=== PATIENT | female | born 1985 | race African-American/Black ===

== ENCOUNTER 2017-11-15 18:57 | Emergency (ER) | payer OTHER ==
[~2017-11-15] VITALS: Ht 180.3 cm; Wt 97.5 kg
--- OUTSIDE RECORDS SUMMARY | 2017-11-15 18:59 | XMS REPORT | Clinical Summary ---
Author Author [facility] Address Unknown Phone Unavailable Care Team Providers Care Flatwork Ironer Name Role Phone PCP Unavailable Allergies No Known Allergies Current Medications Prescription Sig. Disp. Refills Start End Date Status Date multivitamin per tablet Take 1 tablet by mouth Active daily. cholecalciferol (VITAMIN Take 1,000 Units by mouth Active D3) 1,000 unit tablet daily. calcium carbonate Take 600 mg by mouth 2 Active (OS-JAYNA) 600 mg (1,500 (two) times daily with mg) Tab breakfast and dinner. ibuprofen (ADVIL,MOTRIN) Take 1 tablet (600 mg 20 tablet 0 03/27/20 Active 600 MG tablet total) by mouth every 6 16 (six) hours as needed for Pain for up to 20 doses. acetaminophen-codeine Take 1-2 tablets by mouth 20 tablet 0 03/27/20 Active (TYLENOL #3) 300-30 mg every 6 (six) hours as 16 per tablet needed for Pain (WARNING CAUSES SEDATION) for up to 20 doses. metoprolol (TOPROL-XL) 25 Take 25 mg by mouth Active MG 24 hr tablet daily. cyclobenzaprine Take 1 tablet (10 mg 20 tablet 0 11/11/19 11/21/19 (FLEXERIL) 10 MG tablet total) by mouth 2 (two) 17 17 times daily as needed for Muscle spasms for up to 10 days. Active Problems Not on file Encounters Date Type Specialty Care Team Description 07/25/2017 Emergency Emergency Medicine Debbie Conroy MD Chest pain, unspecified type (Primary Dx) 07/25/2017 Orders Only General Internal Medicine after 11/14/2016 Social History Tobacco Use Types Packs/Day Years Used Date Never Smoker Alcohol Use Drinks/Week oz/Week Comments Yes occassionally Sex Assigned at Date Recorded Not on file Last Filed Vital Signs Vital Sign Reading Time Taken Blood Pressure 102/64 07/25/2017 4:34 PM BLASTER HELPER Pulse 94 07/25/2017 4:34 PM BLASTER HELPER Temperature 36.7 C (98 F) 07/25/2017 4:34 PM BLASTER HELPER Respiratory Rate 20 07/25/2017 4:34 PM BLASTER HELPER Oxygen Saturation 99% 07/25/2017 4:34 PM BLASTER HELPER Inhaled Oxygen - - Concentration Weight 101.6 kg (224 lb) 07/25/2017 11:05 AM BLASTER HELPER Height 180.3 cm (5' 11") 07/25/2017 11:05 AM BLASTER HELPER Body Mass Index 31.24 07/25/2017 11:05 AM BLASTER HELPER Plan of Treatment Not on file Results * RHYTHM STRIP - SCAN (07/26/2017 10:10 AM) * ED ECG Interpretation (07/25/2017 3:56 PM) Narrative Debbie Conroy MD 07/25/20173:56 PM ECG/EKG Interpretation Date/Time: 07/25/2017 11:11 AM Performed by: DEBBIE CONROY Authorized by: DEBBIE CONROY The ECG was interpreted by ED physician. The ECG is interpreted as sinus rhythm. Rate is normal rate. Clinical Impression: non-specific ECG * CT chest for pulmonary embolus (07/25/2017 2:59 PM) Specimen Performing Laboratory [employer] Narrative FINAL REPORT CT scan of the chest with pulmonary embolism protocol. Clinical History: Chest pain, acute, , PE suspected cp/sob. Comparison Study: CT scan of the chest dated May 11, 2016. Technique: Pre-intravenous contrast localization images were acquired followed by contiguous helical slices through the thorax post administration of intravenous contrast using a timed bolus fashion. This exam was performed according to our department dose optimization program which includes automated exposure control, adjustment of the mA and/or kV according to the patient's size and/or use of iterative reconstruction technique. Findings: There is no evidence of pulmonary embolism. The mediastinum demonstrates no suspicious masses or adenopathy. Edematous changes are seen, similar to previous. The main pulmonary artery is dilated measuring 3.4 cm. The pleural spaces are clear. Elevation of the left hemidiaphragm is noted, as on previous. Postsurgical changes are seen in the stomach. The tracheobronchial tree is clear with no endobronchial lesions. The pulmonary parenchyma demonstrates a stable 7 mm nodule in the left lung apex on image six. There is minimal subpleural nodularity in the right middle lobe. A 2 mm nodule is seen in the right upper lobe on image 23, stable. Other stable punctate nodules are noted. Bone windows demonstrate no evidence of fracture or malalignment. Impression: 1. No evidence of pulmonary embolism. 2. Significant elevation of the left hemidiaphragm, as on previous. There is adjacent atelectasis or consolidation. This could be related to a diaphragmatic hernia or diaphragmatic paralysis. 3. Punctate pulmonary nodules, stable. 4. Enlargement of the main pulmonary artery suggestive of pulmonary arterial hypertension. If the patient is not known to have pulmonary hypertension, referral to pulmonology is recommended. 5. The previously seen right-sided breast mass is not included in the fvdfo-yf-tknw on the present study. If this has not been worked up, workup is recommended. 6. Other findings as described above. Signed: Elgin Monreal MD Report Verified Date/Time:07/25/2017 15:33:20 Reading Location: [address] Ortho Consult Reading Room Procedure Note Interface, External Ris In - 07/25/2017 3:35 PM BLASTER HELPER FINAL REPORT CT scan of the chest with pulmonary embolism protocol. Clinical History: Chest pain, acute, , PE suspected cp/sob. Comparison Study: CT scan of the chest dated May 11, 2016. Technique: Pre-intravenous contrast localization images were acquired followed by contiguous helical slices through the thorax post administration of intravenous contrast using a timed bolus fashion. This exam was performed according to our department dose optimization program which includes automated exposure control, adjustment of the mA and/or kV according to the patient's size and/or use of iterative reconstruction technique. Findings: There is no evidence of pulmonary embolism. The mediastinum demonstrates no suspicious masses or adenopathy. Edematous changes are seen, similar to previous. The main pulmonary artery is dilated measuring 3.4 cm. The pleural spaces are clear. Elevation of the left hemidiaphragm is noted, as on previous. Postsurgical changes are seen in the stomach. The tracheobronchial tree is clear with no endobronchial lesions. The pulmonary parenchyma demonstrates a stable 7 mm nodule in the left lung apex on image six. There is minimal subpleural nodularity in the right middle lobe. A 2 mm nodule is seen in the right upper lobe on image 23, stable. Other stable punctate nodules are noted. Bone windows demonstrate no evidence of fracture or malalignment. Impression: 1. No evidence of pulmonary embolism. 2. Significant elevation of the left hemidiaphragm, as on previous. There is adjacent atelectasis or consolidation. This could be related to a diaphragmatic hernia or diaphragmatic paralysis. 3. Punctate pulmonary nodules, stable. 4. Enlargement of the main pulmonary artery suggestive of pulmonary arterial hypertension. If the patient is not known to have pulmonary hypertension, referral to pulmonology is recommended. 5. The previously seen right-sided breast mass is not included in the lzyqx-sb-dxhc on the present study. If this has not been worked up, workup is recommended. 6. Other findings as described above. Signed: Elgin Monreal MD Report Verified Date/Time: 07/25/2017 15:33:20 Reading Location: [facility] [id number] Ortho Consult Reading Room * POCT , urine (07/25/2017 1:56 PM) Component Value Ref Range Test Urine, POC Negative Control line present?, Yes POC Background clear?, POC Yes UPT Cassette Lot #, POC [id number] UPT Cassette Expiration 2019-01-10 Date, POC * XR chest 1 view portable / bedside (07/25/2017 11:23 AM) Specimen Performing Laboratory [facility] Narrative FINAL REPORT Chest one view INDICATION: Chest pain COMPARISON: 03/27/2016 IMPRESSION: The left diaphragm remains elevated. There is no focal consolidation, vascular congestion, pleural effusion, or pneumothorax. The cardiomediastinal silhouette is unremarkable. The bones appear intact. Signed: Wil Corcoran MD Report Verified Date/Time:07/25/2017 11:47:17 Reading Location: [facility] Radiology Reading Room Procedure Note Interface, External Ris In - 07/25/2017 11:49 AM BLASTER HELPER FINAL REPORT Chest one view INDICATION: Chest pain COMPARISON: 03/27/2016 IMPRESSION: The left diaphragm remains elevated. There is no focal consolidation, vascular congestion, pleural effusion, or pneumothorax. The cardiomediastinal silhouette is unremarkable. The bones appear intact. Signed: Wil Corcoran MD Report Verified Date/Time: 07/25/2017 11:47:17 Reading Location: [facility] Radiology Reading Room * CBC with platelet count + automated diff (07/25/2017 11:20 AM) Component Value Ref Range WBC 3.3 (L) 3.5 - 10.5 K/ L RBC 3.63 (L) 3.93 - 5.22 M/ L Hemoglobin 8.2 (L) 11.2 - 15.7 GM/DL Hematocrit 28.1 (L) 34.1 - 44.9 % MCV 77.4 (L) 79.4 - 94.8 fL MCH 22.6 (L) 25.6 - 32.2 pg MCHC 29.2 (L) 32.2 - 35.5 GM/DL RDW 18.8 (H) 11.7 - 14.4 % Platelets 197 150 - 450 K/CU MM MPV 10.4 9.4 - 12.3 fL nRBC 0 0 - 0 /100 WBC % Neutros 53 % % Lymphs 38 % % Monos 7 % % Eos 1 % % Baso 1 % # Neutros 1.73 1.56 - 6.13 K/ L # Lymphs 1.25 1.18 - 3.74 K/ L # Monos 0.23 (L) 0.24 - 0.36 K/ L # Eos 0.02 (L) 0.04 - 0.36 K/ L # Baso 0.04 0.01 - 0.08 K/ L Immature 0 0 - 1 % Granulocytes-Relative Specimen Performing Laboratory [facility] - Arm, [address] [address] * Troponin I (07/25/2017 11:20 AM) Component Value Ref Range Troponin I <0.01 0.00 - 0.03 ng/mL Specimen Performing Laboratory [facility] - [facility], [place] [address] Narrative Troponin I (TnI) levels must be interpreted in the context of the presenting symptoms and the clinical findings. Elevated TnI levels indicate myocardial damage, but are not specific for ischemic heart disease. Elevated TnI levels are seen in patients with other cardiac conditions (including myocarditis and congestive heart failure), and slight TnI elevations occur in patients with other conditions, including sepsis, renal failure, acidosis, acute neurological disease, and persistent tachyarrhythmia. * D-dimer (07/25/2017 11:20 AM) Component Value Ref Range D-Dimer, Quant 0.54 (H) <0.50 MG/L FEU Specimen Performing Laboratory [facility], [place] [address] Narrative Intended Use: The D-Dimer Assay can be used to aid in the diagnosis of Deep Vein Thrombosis (DVT) and Pulmonary Embolism Disease (PED). In patients with low pre-test probability, various studies concerning STA Liatest D-dimer test have reported that with a cutoff value of 0.50 MG/L FEU, the Negative Predictive Value (NPV) regarding the exclusion of thrombosis is within 95-100% range. * CBC with platelet count + automated diff (07/25/2017 11:20 AM) Specimen Performing Laboratory Blood Narrative The following orders were created for panel order CBC with platelet count + automated diff. Procedure Abnormality Status --------- - ------ CBC with platelet count ...[[id number]]AbnormalFinal result Please view results for these tests on the individual orders. * B-type Natriuretic Factor (BNP) (07/25/2017 11:20 AM) Component Value Ref Range BNP 34 0 - 100 pg/mL Specimen Performing Laboratory [facility], [place] [address] * Creatine Kinase (CK), Total and MB (07/25/2017 11:20 AM) Component Value Ref Range Total CK 81 29 - 200 U/L CK-MB 0.3 0.0 - 6.6 ng/mL MB Relative Index 0.4 % Specimen Performing Laboratory [facility], [address] [place] [address] Narrative CK-MB Reference Range: <6.7Normal 6.7-10.0Borderline >10.0 Abnormal * Basic Metabolic Panel (07/25/2017 11:20 AM) Component Value Ref Range Sodium 139 136 - 145 meq/L Potassium 4.3 3.5 - 5.1 meq/L Chloride 110 (H) 98 - 107 meq/L CO2 24 22 - 29 meq/L BUN 15 7 - 21 mg/dL Creatinine 0.85 0.57 - 1.25 mg/dL Glucose 94 70 - 105 mg/dL Calcium 8.7 8.4 - 10.2 mg/dL EGFR 93Comment: ESTIMATED GFR IS NOT ACCURATE mL/min/1.73 sq m CREATININE CLEARANCE IN PREDICTING GLOMERULAR FILTRATION RATE. ESTIMATED GFR IS NOT APPLICABLE FOR DIALYSIS PATIENTS. Specimen Performing Laboratory [facility], Right [address] [address] * ECG 12 lead (07/25/2017 10:56 AM) Specimen Performing Laboratory [facility] Narrative Ventricular Rate 72 BPM Atrial Rate 72 BPM P-R Interval 130 ms QRS Duration 70 ms Q-T Interval 350 ms QTC Calculation(Bazett) 383 ms P [place] 41 degrees R [place] -17 degrees T [place] -8 degrees Normal sinus rhythm Nonspecific T wave abnormality Abnormal ECG When compared with ECG of 10-NOV-2016 01:25, Questionable change in QRS axis Nonspecific T wave abnormality now evident in Inferior leads Confirmed by Syeda BEAN, JOE ([id number]) on 07/26/2017 9:00:37 AM Procedure Note Interface, External Ris In - 07/26/2017 9:00 AM BLASTER HELPER Ventricular Rate 72 BPM Atrial Rate 72 BPM P-R Interval 130 ms QRS Duration 70 ms Q-T Interval 350 ms QTC Calculation(Bazett) 383 ms P [place] 41 degrees R [place]den -17 degrees T [place] -8 degrees Normal sinus rhythm Nonspecific T wave abnormality Abnormal ECG When compared with ECG of 10-NOV-2016 01:25, Questionable change in QRS axis Nonspecific T wave abnormality now evident in Inferior leads Confirmed by Syeda BEAN BASANT ([id number]) on 07/26/2017 9:00:37 AM after 11/14/2016
--- OUTSIDE RECORDS SUMMARY | 2017-11-15 19:00 | XMS REPORT ---
Author Author [facility] Address Unknown Phone Unavailable Care Team Providers Care Editor In Chief Name Role Phone DEBBIE CONROY Unavailable Unavailable Problems This patient has no known problems. Allergies, Adverse Reactions, Alerts This patient has no known allergies or adverse reactions. Medications This patient has no known medications. Results Test Description Test Time Test Comments Text Results Atomic Results Result Comments CT, CHEST WITH IV CONTRAST- PE TEST DESIGN 2017-07-25 15:33:00 Reason for exam:->cp/sobIs the patient ?->NoWhat is the patient's sedation requirement?->No Sedation FINAL REPORT CT scan of the chest with pulmonary embolism protocol. Clinical History: Chest pain, acute, , PE suspectedcp/sob. Comparison Study: CT scan of the chest [...] malalignment. Impression: 1. No evidence of pulmonary embolism.2. Significant elevation of the left hemidiaphragm, as on previous. There is adjacent atelectasis or consolidation. This could be related to a diaphragmatic hernia or diaphragmatic paralysis.3. Punctate pulmonary nodules, stable.4. Enlargement of the main pulmonary artery suggestive of pulmonary arterial hypertension. If the patient is not known to have pulmonary hypertension, referral to pulmonology is recommended.5. The previously seen right-sided breast mass is not included in the smkkd-ap-kpdf on the present study. If this has not been worked up, workup is recommended.6. Other findings as described above. Signed: Elgin Monreal MDReport Verified Date/Time: 07/25/2017 15:33:20 Reading Location: [address] Consult Reading Room TINE KINASE (CK), TOTAL AND MB 2017-07-25 11:56:00 CREATINE KINASE TOTAL (BEAKER) (test tuvx=720) 81 U/L 29-200 CREATINE KINASE-MB (BEAKER) (test bobn=073) 0.3 ng/mL 0.0-6.6 CREATINE KINASE-MB INDEX (BEAKER) (test jkyn=598) 0.4 % CK-MB Reference Range:<6.7 Normal6.7-10.0 Borderline>10.0 AbnormalTROPONIN [id number] 11:56:00* Test Item Value Reference Range Comments TROPONIN I (BEAKER) (test rude=103) < ng/mL 0.00-0.03 Troponin I (TnI) levels must be interpreted [...] failure, acidosis, acute neurological disease, and persistent tachyarrhythmia.B-TYPE NATRIURETIC FACTOR (BNP) 11:56:00* Test Item Value Reference Range Comments B-TYPE NATRIURETIC PEPTIDE (BEAKER) (test ncby=615) 34 pg/mL 0-100 BASIC METABOLIC [id number] 11:50:00* Test Item Value Reference Range Comments SODIUM (BEAKER) (test ycbr=063) 139 meq/L 136-145 POTASSIUM (BEAKER) (test vbvs=755) 4.3 meq/L 3.5-5.1 CHLORIDE (BEAKER) (test etmr=519) 110 meq/L 98-107 CO2 (BEAKER) (test zfbj=275) 24 meq/L 22-29 BLOOD UREA NITROGEN (BEAKER) (test qyyh=884) 15 mg/dL 7-21 CREATININE (BEAKER) (test ieny=611) 0.85 mg/dL 0.57-1.25 GLUCOSE RANDOM (BEAKER) (test wrhp=257) 94 mg/dL 70-105 CALCIUM (BEAKER) (test bpib=385) 8.7 mg/dL 8.4-10.2 EGFR (BEAKER) (test joes=9161) 93 mL/min/1.73 sq m ESTIMATED GFR IS NOT ACCURATE CREATININE CLEARANCE IN PREDICTING GLOMERULAR FILTRATION RATE. ESTIMATED GFR IS NOT APPLICABLE FOR DIALYSIS PATIENTS. RAD, CHEST, 1 VIEW, NON [id number] 11:47:00Reason for exam:->chest painIs the patient ?->UnknownShould this be performed at the bedside?-> YesFINAL REPORT Chest one view INDICATION: Chest pain COMPARISON: 03/27/2016 IMPRESSION: The left diaphragm remains elevated. There is no focal consolidation, vascular congestion, pleural effusion, or pneumothorax. The cardiomediastinal silhouette is unremarkable. The bones appear intact. Signed: Wil Corcoran MDReport Verified Date/Time: 07/25/2017 11:47:17 Reading Location: [facility] Radiology Reading Room [id number] 11:43:00 * Test Item Value Reference Range Comments D-DIMER QUANTITATIVE (BEAKER) (test eqps=921) 0.54 MG/L FEU <0.50 Intended Use: The D-Dimer Assay can be used to aid in the diagnosis of Deep Vein Thrombosis (DVT) and Pulmonary Embolism Disease (PED).In patients with low pre-test probability, various studies concerning STA Liatest D-dimer test have reported that with a cutoff value of 0.50 MG/L FEU, the Negative Predictive Value (NPV) regarding the exclusion of thrombosis is within 95-100% range.CBC W/ PLT COUNT & AUTO [id number] 11:38:00* Test Item Value Reference Range Comments WHITE BLOOD CELL COUNT (BEAKER) (test cojp=279) 3.3 K/ L 3.5-10.5 RED BLOOD CELL COUNT (BEAKER) (test euli=788) 3.63 M/ L 3.93-5.22 HEMOGLOBIN (BEAKER) (test ylmu=619) 8.2 GM/DL 11.2-15.7 HEMATOCRIT (BEAKER) (test fabs=663) 28.1 % 34.1-44.9 MEAN CORPUSCULAR VOLUME (BEAKER) (test uqss=509) 77.4 fL 79.4-94.8 MEAN CORPUSCULAR HEMOGLOBIN (BEAKER) (test xvsk=781) 22.6 pg 25.6-32.2 MEAN CORPUSCULAR HEMOGLOBIN CONC (BEAKER) (test vgdg=056) 29.2 GM/DL 32.2- 35.5 RED CELL DISTRIBUTION WIDTH (BEAKER) (test tvvz=982) 18.8 % 11.7-14.4 PLATELET COUNT (BEAKER) (test jcbo=402) 197 K/CU MM 150-450 MEAN PLATELET VOLUME (BEAKER) (test xmxj=748) 10.4 fL 9.4-12.3 NUCLEATED RED BLOOD CELLS (BEAKER) (test jbpd=395) 0 /100 WBC 0-0 NEUTROPHILS RELATIVE PERCENT (BEAKER) (test qjdt=992) 53 % LYMPHOCYTES RELATIVE PERCENT (BEAKER) (test gyap=152) 38 % MONOCYTES RELATIVE PERCENT (BEAKER) (test uldb=858) 7 % EOSINOPHILS RELATIVE PERCENT (BEAKER) (test kngr=504) 1 % BASOPHILS RELATIVE PERCENT (BEAKER) (test dubt=088) 1 % NEUTROPHILS ABSOLUTE COUNT (BEAKER) (test pavh=270) 1.73 K/ L 1.56-6.13 LYMPHOCYTES ABSOLUTE COUNT (BEAKER) (test xupx=154) 1.25 K/ L 1.18-3.74 MONOCYTES ABSOLUTE COUNT (BEAKER) (test uuxj=124) 0.23 K/ L 0.24-0.36 EOSINOPHILS ABSOLUTE COUNT (BEAKER) (test otew=667) 0.02 K/ L 0.04-0.36 BASOPHILS ABSOLUTE COUNT (BEAKER) (test nxwu=869) 0.04 K/ L 0.01-0.08 IMMATURE GRANULOCYTES-RELATIVE PERCENT (BEAKER) (test ncsq=3450) 0 % 0-1 [id number] 02:00:00* Test Item Value Reference Range Comments PROTIME (BEAKER) (test vqji=921) 13.4 seconds 11.7-14.7 INR (BEAKER) (test xvre=584) 1.0 <=5.9 PARTIAL THROMBOPLASTIN TIME (BEAKER) (test ynec=359) 29.6 seconds 22.5-36.0 RECOMMENDED COUMADIN/WARFARIN INR THERAPY RANGESSTANDARD DOSE: 2.0 - 3.0 Includes: PROPHYLAXIS for venous thrombosis, systemic embolization; TREATMENT for venous thrombosis and/or pulmonary embolus.HIGH RISK: Target INR is 2.5-3.5 for patients with mechanical heart valves.CREATINE KINASE (CK), TOTAL AND [id number] 01:58:00* Test Item Value Reference Range Comments CREATINE KINASE TOTAL (BEAKER) (test wtqu=103) 166 U/L 29-200 CREATINE KINASE-MB (BEAKER) (test ixpz=087) 0.8 ng/mL 0.0-6.6 CREATINE KINASE-MB INDEX (BEAKER) (test gwef=999) 0.5 % Effective 06/30/2014: CK-MB Reference Range ChangeNew: 0.0-6.6 Previous: 0.0- 4.9CK-MB Reference Range:<6.7 Normal6.7-10.0 Borderline>10.0 AbnormalTROPONIN [id number] 01:58:00* Test Item Value Reference Range Comments TROPONIN I (BEAKER) (test driy=069) < ng/mL 0.00-0.03 Effective 06/30/2014: Reference Range ChangeNew: 0.00-0.03 Previous 0.00- 0.15Troponin I (TnI) levels must be interpreted in [...] failure, acidosis, acute neurological disease, and persistent tachyarrhythmia.BASIC METABOLIC [id number] 01:52:00* Test Item Value Reference Range Comments SODIUM (BEAKER) (test kouh=324) 139 meq/L 136-145 POTASSIUM (BEAKER) (test phug=592) 4.4 meq/L 3.5-5.1 CHLORIDE (BEAKER) (test bkvv=886) 109 meq/L 98-107 CO2 (BEAKER) (test dbjp=341) 23 meq/L 22-29 BLOOD UREA NITROGEN (BEAKER) (test bcpz=596) 14 mg/dL 7-21 CREATININE (BEAKER) (test eoso=267) 0.93 mg/dL 0.57-1.25 GLUCOSE RANDOM (BEAKER) (test yvlk=887) 90 mg/dL 70-105 CALCIUM (BEAKER) (test zipw=470) 8.9 mg/dL 8.4-10.2 EGFR (BEAKER) (test vtgn=4004) 85 mL/min/1.73 sq m ESTIMATED GFR IS NOT ACCURATE CREATININE CLEARANCE IN PREDICTING GLOMERULAR FILTRATION RATE. ESTIMATED GFR IS NOT APPLICABLE FOR DIALYSIS PATIENTS. CBC W/PLT COUNT & AUTO [id number] 01:43:00* Test Item Value Reference Range Comments WHITE BLOOD CELL COUNT (BEAKER) (test lgos=613) 4.0 K/ L 4.0-10.0 RED BLOOD CELL COUNT (BEAKER) (test wssh=069) 3.59 M/ L 4.00-5.00 HEMOGLOBIN (BEAKER) (test qeem=332) 9.7 GM/DL 12.0-15.0 HEMATOCRIT (BEAKER) (test tpor=235) 30.7 % 36.0-45.0 MEAN CORPUSCULAR VOLUME (BEAKER) (test vfse=830) 85.5 fL 82.0-99.0 MEAN CORPUSCULAR HEMOGLOBIN (BEAKER) (test rslq=362) 27.1 pg 27.0-33.0 MEAN CORPUSCULAR HEMOGLOBIN CONC (BEAKER) (test doqb=354) 31.7 GM/DL 32.0- 36.0 RED CELL DISTRIBUTION WIDTH (BEAKER) (test qnvo=033) 15.8 % 10.3-14.2 PLATELET COUNT (BEAKER) (test rzwk=370) 167 K/CU MM 150-430 MEAN PLATELET VOLUME (BEAKER) (test apgi=069) 8.4 fL 6.5-10.5 NUCLEATED RED BLOOD CELLS (BEAKER) (test yttj=162) 0 /100 WBC 0-0 NEUTROPHILS RELATIVE PERCENT (BEAKER) (test subj=317) 46 % LYMPHOCYTES RELATIVE PERCENT (BEAKER) (test fwyh=870) 44 % MONOCYTES RELATIVE PERCENT (BEAKER) (test leyu=926) 6 % EOSINOPHILS RELATIVE PERCENT (BEAKER) (test gvzi=265) 2 % BASOPHILS RELATIVE PERCENT (BEAKER) (test ruby=518) 1 % NEUTROPHILS ABSOLUTE COUNT (BEAKER) (test ffiy=452) 1.82 K/ L 1.80-8.00 LYMPHOCYTES ABSOLUTE COUNT (BEAKER) (test ktbu=484) 1.76 K/ L 1.48-4.50 MONOCYTES ABSOLUTE COUNT (BEAKER) (test tnxm=906) 0.26 K/ L 0.00-1.30 EOSINOPHILS ABSOLUTE COUNT (BEAKER) (test jaot=503) 0.07 K/ L 0.00-0.50 BASOPHILS ABSOLUTE COUNT (BEAKER) (test pewt=012) 0.06 K/ L 0.00-0.20 0.00
[2017-11-15] MEDS ORDERED: KETOROLAC TROMETHAMINE 60 MG/2 ML VIAL IM ONE (20:00)
[2017-11-15 20:07] VITALS: BP 110/70
== END 2017-11-15 20:15 | disposition home or self-care (01) ==
LOC: FSED 18:57
DX: R07.89 Other chest pain (principal); R60.9 Edema, unspecified; Q24.5 Malformation of coronary vessels
CPT/HCPCS: 71046; 82553; 84484; 85025; 93005; 96372; 99283; J1885